=== PATIENT | male | born 1995 | race Two or more races ===

== ENCOUNTER 2019-03-22 13:46 | Emergency (ER) | payer OTHER ==
[~2019-03-22] VITALS: Ht 188 cm; Wt 93.0 kg
[2019-03-22 13:55] VITALS: BP 131/71
[2019-03-22] MEDS ORDERED: ACETAMINOPHEN ES 500 MG TABLET ONE (14:18)
[2019-03-22] MEDS ORDERED: ACETAMINOPHEN ES 500 MG TABLET PO ONE (14:30)
[2019-03-22] MEDS ORDERED: SILVER SULFADIAZINE CREAM 25 GM TUBE ONE (15:05)
--- NOTE | 2019-03-22 15:17 | NUR ---
WOUND CARE PROVIDED. D/C HOME IN STABLE CONDITION.
[2019-03-22] MEDS ORDERED: SILVER SULFADIAZINE 50 GM JAR TP ONE (15:30)
== END 2019-03-22 15:19 | disposition home or self-care (01) ==
LOC: ER 13:51
DX: S06.0X0A Concussion without loss of consciousness, initial encounter (principal); S46.812A Strain of other muscles, fascia and tendons at shoulder and upper arm level, left arm, initial encounter; T22.512A Corrosion of first degree of left forearm, initial encounter; V49.49XA Driver injured in collision with other motor vehicles in traffic accident, initial encounter; Y93.89 Activity, other specified; Y92.488 Other paved roadways as the place of occurrence of the external cause; Y99.8 Other external cause status
CPT/HCPCS: 73090-TC; 73130-TC